=== PATIENT | female | born 1960 | race Caucasian/White ===

== ENCOUNTER 2021-04-20 11:08 | Inpatient (IN) ==
[~2021-04-20 11:08] MED LIST: Gabapentin 300 MG CAPSULE PO ONE
[2021-04-20] MEDS ORDERED: Heparin 1,000 UNITS/500 mL 0 ML ONE (11:12)
[2021-04-20] MEDS ORDERED: *HR* Midazolam HCl 2 MG/2 ML VIAL ONE (11:36)
[2021-04-20] MEDS ORDERED: *HR* FentaNYL (PF) 100 MCG/2 ML VIAL ONE (11:37)
[2021-04-20] MEDS ORDERED: *HR* Propofol 200 MG/20 ML VIAL IVP ONE (11:39)
[2021-04-20] MEDS ORDERED: *HR* Succinylcholine 200 MG/10 ML VIAL IVP ONE (11:40)
[2021-04-20] MEDS ORDERED: *HR* Remifentanil 2 MG VIAL IVP ONE (12:02)
[2021-04-20] MEDS ORDERED: *HR* Phenylephrine 10 MG/ML VIAL ONE (12:03)
[2021-04-20] MEDS ORDERED: CeFAZolin Syr 2,000MG/20 ML 2,000 MG/20 ML SYRINGE IVPB ONE (12:16)
[2021-04-20] MEDS ORDERED: Vancomycin 1,250 MG/262.5 ML IV.SOLN IVPB ONE (12:16)
[2021-04-20] MEDS ORDERED: Ringers Solution, Lactated 1,000 ML IVC SCH ×2 (12:30→13:00)
[2021-04-20] MEDS ORDERED: Lidocaine -MPF 2% 2 ML VIAL ONE (12:33)
[2021-04-20] MEDS ORDERED: Lidocaine -MPF 1% 5 ML AMPUL ONE (12:34)
[2021-04-20] MEDS ORDERED: Ondansetron 4 MG/2 ML VIAL IVP PRN ×2 (12:47→18:49)
[2021-04-20] MEDS ORDERED: *HR* OxyCODONE Immed Rel 5 MG TABLET PO PRN ×2 (12:47→18:49)
[2021-04-20] MEDS ORDERED: Vancomycin 1,000 MG, Sodium Chloride IRRigation 1,000 ML IR ONE (12:50)
[2021-04-20] MEDS ORDERED: Lidocaine HCL 4 ML Topical Solution (Laryng-O-Jet Kit Sterile Pak) TP ONE (13:08)
[2021-04-20] MEDS ORDERED: Lacri-Lube 3.5 GM TUBE ONE (14:08)
[2021-04-20] MEDS ORDERED: *HR* Vasopressin 20 UNIT/ML VIAL ONE (17:12)
[2021-04-20] MEDS ORDERED: NiCARdipine 2.5 MG/10 ML Syringe IVPB ONE (17:12)
[2021-04-20] MEDS ORDERED: Albumin Human 5% 0 GM/0 ML IV.SOLN ONE (17:12)
[2021-04-20] MEDS: *HR* FentaNYL (PF) 100 MCG/2 ML VIAL IVP PRN ×4 (17:13→17:42)
[2021-04-20] MEDS ORDERED: Acetaminophen 325 MG TABLET PO PRN (18:49)
[2021-04-20] MEDS ORDERED: *HR* Labetalol 20 MG/4 ML SYRINGE IVP PRN (18:49)
[2021-04-20] MEDS ORDERED: 0.9 % Sodium Chloride 1,000 ML IVC SCH (18:49)
[2021-04-20] MEDS ORDERED: Naloxone 0.4 MG/ML INJ IVP PRN (18:49)
[2021-04-20] MEDS ORDERED: Bupivacaine-MPF 0.25% 10 ML VIAL ONE (19:32)
[2021-04-20] MEDS ORDERED: Heparin 1,000 UNITS/500 mL 500 ML ONE (19:32)
[2021-04-20] MEDS: CeFAZolin 2 GM/120 ML BAG IVPB SCH (20:23)
[2021-04-20] MEDS: Gabapentin 400 MG CAPSULE PO SCH (20:23)
[2021-04-20] MEDS: *HR* Metoprolol 5 MG/5 ML VIAL IVP SCH (20:23)
[2021-04-21] MEDS: *HR* Metoprolol 5 MG/5 ML VIAL IVP SCH ×2 (00:26→05:44)
[2021-04-21] MEDS: *HR* HYDROcodone/Acet 5/325 mg TABLET PO PRN ×2 (00:27→08:03)
[2021-04-21] MEDS ORDERED: Vancomycin 1,250 MG/262.5 ML IV.SOLN IVPB ONE (01:30)
[2021-04-21] MEDS: CeFAZolin 2 GM/120 ML BAG IVPB SCH (03:05)
[2021-04-21 04:33] LABS: Basophils % 0.2 %; Hematocrit 39.6 % (35.3-44.9); Hemoglobin 13.2 g/dL (11.5-15.4); Immature Granulocytes % 0.2 % (0-4); Lymphocytes # 1.6 K/mcL (0.6-4.6); Lymphocytes % 26.3 %; Mean Corpuscular HGB Conc 33.3 g/dL (31.6-35.5); Mean Corpuscular Hemoglobin 31.3 pg (28.0-33.3); Mean Corpuscular Volume 93.8 fL (83.0-100.0); Mean Platelet Volume 11.1 fL (9.4-12.4); Monocytes # 0.4 K/mcL (0.0-1.3); Monocytes % 5.8 %; Neutrophils # 4.2 K/mcL (1.6-8.9); Platelet Count 150 K/mcL (140-400); Red Blood Count 4.22 M/mcL (3.82-4.97); Red Cell Distribution Width 18.3 % (11.5-14.5); Segmented Neutrophils % 67.5 %; White Blood Count 6.2 K/mcL (4.3-11.1)
[2021-04-21 04:42] LABS: BUN/Creatinine Ratio 16 (6-26); Blood Urea Nitrogen 10 mg/dL (8-23); Calcium 8.5 mg/dL (8.6-10.3); Carbon Dioxide 21 mEq/L (23-29); Chloride 107 mEq/L (98-107); Glucose 89 mg/dL (70-105); Osmolality,Calculated 279 (280-300); Potassium 4.1 mEq/L (3.5-5.1); Sodium 135 mEq/L (136-145); eGFR For African Americans > 60 (> 60); eGFR For Non-African Americans > 60 (> 60)
[2021-04-21] MEDS ORDERED: *HR* Heparin 5,000 UNIT/ML VIAL SQ SCH ×2 (06:00)
[2021-04-21 07:17] VITALS: BP 135/77; PULSE 62; TEMP 98; O2SAT 97
[2021-04-21] MEDS: Gabapentin 400 MG CAPSULE PO SCH (08:03)
[2021-04-21] MEDS ORDERED: Cyanocobalamin (B-12) 1,000 MCG TABLET PO SCH (09:00)
[2021-04-21] MEDS ORDERED: Magnesium Oxide 400 MG TABLET PO SCH (09:00)
[2021-04-21] MEDS ORDERED: allopurinoL 300 MG TABLET PO SCH (09:00)
== END 2021-04-21 11:26 | disposition home or self-care (01) | DRG 253 ==
LOC: SAMDAY 11:08 → 2NNU 18:32
PROVIDERS: ADMIT Surgery; ATTEND Surgery